=== PATIENT | female | born 1945 | race African-American/Black ===

== ENCOUNTER → 2016-06-09 | Outpatient (CLI) | payer MEDICARE ==
[2016-06-09 13:57] LABS: ABSOLUTE EOSINOPHILS # (AUTO) 0.3 10^3/uL (0.0-0.6); ABSOLUTE MONOCYTES (AUTO) 0.8 10^3/uL (0.1-1.4); ABSOLUTE NEUT (AUTO) 4.4 10^3/uL (1.7-8.2); BASOPHILS % (AUTO) 0.2 % (0-2); EOSINOPHILS % (AUTO) 4.5 % (0-6); HEMATOCRIT 46.7 % (36.0-47.0); HGB HCT DIFFERENCE -1.7; LYMPHOCYTES % (AUTO) 26.4 % (13-45); MEAN CORPUSCULAR HEMOGLOBIN 30.7 pg (27.0-33.4); MEAN CORPUSCULAR VOLUME 96 fl (80-97); MONOCYTES % (AUTO) 10.2 % (3-13); RED BLOOD COUNT 4.87 10^6/uL (3.72-5.28); RED CELL DISTRIBUTION WIDTH 13.6 % (11.5-14.0); SEGMENTED NEUTROPHILS % (AUTO) 58.7 % (42-78); WHITE BLOOD COUNT 7.5 10^3/uL (4.0-10.5)
[2016-06-09 14:03] LABS: ALANINE AMINOTRANSFERASE 29 U/L (9-52); ALKALINE PHOSPHATASE 60 U/L (38-126); ANION GAP 9 (5-19); ASPARTATE AMINO TRANSFERASE 20 U/L (14-36); BILIRUBIN,TOTAL 0.6 mg/dL (0.2-1.3); BLOOD UREA NITROGEN 15 mg/dL (7-20); CALCIUM 9.5 mg/dL (8.4-10.2); CARBON DIOXIDE 36 mmol/L (22-30); CHLORIDE 96 mmol/L (98-107); CREATININE RESULT 0.83 mg/dL (0.52-1.25); GLUCOSE 83 mg/dL (75-110); POTASSIUM 4.1 mmol/L (3.6-5.0); SODIUM 141.3 mmol/L (137-145); TOTAL PROTEIN 6.4 g/dL (6.3-8.2)
[2016-06-09 14:04] LABS: C-REACTIVE PROTEIN < 5.0 mg/L (<10.0)
[2016-06-09 14:49] LABS: ERYTHROCYTE SEDIMENTATION RATE 6 mm/hr (0-30)
[2016-06-10 13:58] LABS: APPEARANCE,URINE SLIGHTLY-CLOUDY; BILIRUBIN,URINE NEGATIVE (NEGATIVE); CALCIUM OXALATE CRYSTALS,URINE FEW /HPF; GLUCOSE, URINE NEGATIVE (NEGATIVE); KETONES,URINE NEGATIVE (NEGATIVE); LEUKOCYTE ESTERASE,URINE NEGATIVE (NEGATIVE); NITRITE,URINE NEGATIVE (NEGATIVE); PROTEIN,URINE NEGATIVE (NEGATIVE); URINE SPECIFIC GRAVITY 1.026; UROBILINOGEN,URINE NEGATIVE mg/dL (<2.0)
== END ==
LOC: OD 12:57
PROVIDERS: ATTEND Specialist
DX: K58.8 Other irritable bowel syndrome (principal); R10.9 Unspecified abdominal pain; D50.9 Iron deficiency anemia, unspecified
CPT/HCPCS: 36415; 80053; 81001; 85025; 85652; 86140; 86256; 87086

== ENCOUNTER → 2016-08-17 | Outpatient (CLI) | payer MEDICARE ==
[2016-08-17 17:05] LABS: ABSOLUTE EOSINOPHILS # (AUTO) 0.2 10^3/uL (0.0-0.6); ABSOLUTE LYMPHOCYTES (AUTO) 0.9 10^3/uL (0.5-4.7); ABSOLUTE MONOCYTES (AUTO) 0.5 10^3/uL (0.1-1.4); ABSOLUTE NEUT (AUTO) 5.5 10^3/uL (1.7-8.2); BASOPHILS % (AUTO) 0.4 % (0-2); EOSINOPHILS % (AUTO) 2.4 % (0-6); HEMATOCRIT 42.8 % (36.0-47.0); HEMOGLOBIN 14.5 g/dL (12.0-15.5); HGB HCT DIFFERENCE 0.7; LYMPHOCYTES % (AUTO) 12.9 % (13-45); MEAN CORPUSCULAR HEMOGLOBIN 31.9 pg (27.0-33.4); MEAN CORPUSCULAR VOLUME 94 fl (80-97); MONOCYTES % (AUTO) 6.9 % (3-13); RED BLOOD COUNT 4.56 10^6/uL (3.72-5.28); RED CELL DISTRIBUTION WIDTH 14.1 % (11.5-14.0); SEGMENTED NEUTROPHILS % (AUTO) 77.4 % (42-78); WHITE BLOOD COUNT 7.1 10^3/uL (4.0-10.5)
[2016-08-17 17:40] LABS: ERYTHROCYTE SEDIMENTATION RATE 8 mm/hr (0-30)
== END ==
LOC: OD 15:54
PROVIDERS: ATTEND Specialist
DX: K58.9 Irritable bowel syndrome, unspecified (principal); R10.9 Unspecified abdominal pain
CPT/HCPCS: 36415; 85025; 85652; 86140; 86256

== ENCOUNTER → 2016-11-17 | Outpatient (CLI) | payer MEDICARE ==
--- NOTE | 2016-11-17 17:13 | RADIOLOGY REPORT (SQ) ---
EXAM DESCRIPTION: VENOUS UNILATERAL LOWER COMPLETED DATE/TIME: 11/17/2016 4:52 pm REASON FOR STUDY: M79.605 M79.605 PAIN IN LEFT LEG COMPARISON: None. TECHNIQUE: Dynamic and static powell scale and color images acquired of the left leg venous system. Se lected spectral images acquired with additional compression and augmentation maneuvers. The contralat eral common femoral vein and saphenofemoral junction were also imaged. Images stored on PACS. LIMITATIONS: None. FINDINGS: LEFT COMMON FEMORAL: Normal phasicity, compression and augmentation. No visualized echogenic material on g ray scale. No defects on color images. FEMORAL: Normal compression and augmentation. No visualized echogenic material on powell scale. No defe cts on color images. POPLITEAL: Normal compression, augmentation. No visualized echogenic material on powell scale. No defec ts on color images. CALF VESSELS: Normal compression, augmentation. No visualized echogenic material on powell scale. No de fects on color images. GSV and SSV: Normal compression, augmentation. No visualized echogenic material on powell scale. No def ects on color images. ANY DEEP VENOUS INSUFFICIENCY: Not evaluated. ANY EVIDENCE OF POPLITEAL CYST: No. OTHER: No other significant finding. RIGHT COMMON FEMORAL VEIN AND SAPHENOFEMORAL JUNCTION: Normal phasicity, compression and augmentation. No visualized echogenic material on powell scale. No de fects on color images. IMPRESSION: NO EVIDENCE OF DVT OR SVT IN THE LEFT LEG. TECHNICAL DOCUMENTATION: JOB ID: [id number] [employer]- All Rights Reserved
== END ==
LOC: SP 16:14
PROVIDERS: ATTEND Physician Assistant
DX: M79.605 Pain in left leg (principal)
CPT/HCPCS: 93971

== ENCOUNTER → 2016-11-30 | Outpatient (CLI) | payer MEDICARE ==
--- NOTE | 2016-11-30 17:20 | WOMENS IMAGING REPORT ---
EXAM DESCRIPTION: BILAT DIAGNOSTIC MAMMO W/CAD; U/S BREAST UNILAT LIMITED COMPLETED DATE/TIME: 11/30/2016 11:38 am; 11/30/2016 2:01 pm REASON FOR STUDY: N64.89 N64.89 OTHER SPECIFIED DISORDERS OF BREAST left breast pain COMPARISON: Mammograms dating back to 2007 TECHNIQUE: Standard craniocaudal and mediolateral oblique views of each breast recorded using digita l acquisition. Left breast 90 mediolateral view. Left breast ultrasound. LIMITATIONS: None. FINDINGS: RIGHT BREAST MASSES: No suspicious masses. CALCIFICATIONS: No new or suspicious calcifications. ARCHITECTURAL DISTORTION: None. DEVELOPING DENSITY: None. ASYMMETRY: None noted. OTHER: No other significant findings. LEFT BREAST MASSES: No suspicious masses. CALCIFICATIONS: No new or suspicious calcifications. ARCHITECTURAL DISTORTION: None. DEVELOPING DENSITY: None. ASYMMETRY: None noted. OTHER: Pacemaker over the left upper outer quadrant Read with the assistance of CAD: .[facility] - R2 Cenova Version 1.3 .[facility] - R2 Cenova Version 1.3 .[facility] - R2 Cenova Version 2.4 .[facility] - R2 Cenova Version 2.4 .[facility] - R2 Esthetician Facialist Version 9.2 Left breast ultrasound: Patient gives a history of left breast pain. Ultrasound of the left breast 12 o'clock position was p erformed in the area of pain 1 1 seconds. No focal findings. No cysts. No masses. No worrisome acoustic absorption. No fluid collections al dante the pacemaker leads. IMPRESSION: No mammographic evidence for malignancy right breast. No mammographic or sonographic evidence for malignancy left breast. BREAST DENSITY: d. The breasts are extremely dense, which lowers the sensitivity of mammography. BIRAD: 1 Negative. RECOMMENDATION: RECOMMENDED FOLLOW UP: Clinical followup for breast pain. Otherwise, please continu e yearly bilateral tomosynthesis in November 2017 given extremely dense fibroglandular tissue SPECIFIC INTERVENTION/IMAGING/CONSULTATION RECOMMENDED:No additional intervention/ imaging/consultati on needed at this time. COMMUNICATION:The negative/benign results were communicated to the patient. COMMENT: The patient has been notified of the results by letter per MQSA requirements. Additional no tification policies are in place for contacting patient with suspicious or incomplete findings. Quality ID #[id number]: The [employer] recommends an annual screening mammogram for women aged 40 years or over. This facility utilizes a reminder system to ensure that all patients receive reminder letters, and/or direct phone calls for appointments. This includes reminders for routine scr eening mammograms, diagnostic mammograms, or other Breast Imaging Interventions when appropriate. Th is patient will be placed in the appropriate reminder system. The [employer] (ACR) has developed recommendations for screening MRI of the breast s in certain patient populations, to be used in conjunction with mammography. Breast MRI surveillanc e may be appropriate for women with more than 20% lifetime risk of developing breast cancer as deter mined by genetic testing, significant family history of the disease, or history of mantle radiation f or Hodgkins Disease. ACR Practice Guidelines 2008. TECHNICAL DOCUMENTATION: FINDING NUMBER: (1) ASSESSMENT: (1) JOB ID: [id number] [employer]- All Rights Reserved
--- NOTE | 2016-11-30 17:20 | WOMENS IMAGING REPORT ---
EXAM DESCRIPTION: BILAT DIAGNOSTIC MAMMO W/CAD; U/S BREAST UNILAT LIMITED COMPLETED DATE/TIME: 11/30/2016 11:38 am; 11/30/2016 2:01 pm REASON FOR STUDY: N64.89 N64.89 OTHER SPECIFIED DISORDERS OF BREAST left breast pain COMPARISON: Mammograms dating back to 2007 TECHNIQUE: Standard craniocaudal and mediolateral oblique views of each breast recorded using digita l acquisition. Left breast 90 mediolateral view. Left breast ultrasound. LIMITATIONS: None. FINDINGS: RIGHT BREAST MASSES: No suspicious masses. CALCIFICATIONS: No new or suspicious calcifications. ARCHITECTURAL DISTORTION: None. DEVELOPING DENSITY: None. ASYMMETRY: None noted. OTHER: No other significant findings. LEFT BREAST MASSES: No suspicious masses. CALCIFICATIONS: No new or suspicious calcifications. ARCHITECTURAL DISTORTION: None. DEVELOPING DENSITY: None. ASYMMETRY: None noted. OTHER: Pacemaker over the left upper outer quadrant Read with the assistance of CAD: .[facility] - R2 Cenova Version 1.3 .[facility] Imaging - R2 Cenova Version 1.3 .[facility] - R2 Cenova Version 2.4 .[facility] - R2 Cenova Version 2.4 .[facility] - R2 Technical Marketing Consultant Version 9.2 Left breast ultrasound: Patient gives a history of left breast pain. Ultrasound of the left breast 12 o'clock position was p erformed in the area of pain 1 1 seconds. No focal findings. No cysts. No masses. No worrisome acoustic absorption. No fluid collections al dante the pacemaker leads. IMPRESSION: No mammographic evidence for malignancy right breast. No mammographic or sonographic evidence for malignancy left breast. BREAST DENSITY: d. The breasts are extremely dense, which lowers the sensitivity of mammography. BIRAD: 1 Negative. RECOMMENDATION: RECOMMENDED FOLLOW UP: Clinical followup for breast pain. Otherwise, please continu e yearly bilateral tomosynthesis in November 2017 given extremely dense fibroglandular tissue SPECIFIC INTERVENTION/IMAGING/CONSULTATION RECOMMENDED:No additional intervention/ imaging/consultati on needed at this time. COMMUNICATION:The negative/benign results were communicated to the patient. COMMENT: The patient has been notified of the results by letter per MQSA requirements. Additional no tification policies are in place for contacting patient with suspicious or incomplete findings. Quality ID #225: The [employer] recommends an annual screening mammogram for women aged 40 years or over. This facility utilizes a reminder system to ensure that all patients receive reminder letters, and/or direct phone calls for appointments. This includes reminders for routine scr eening mammograms, diagnostic mammograms, or other Breast Imaging Interventions when appropriate. Th is patient will be placed in the appropriate reminder system. The [employer] (ACR) has developed recommendations for screening MRI of the breast s in certain patient populations, to be used in conjunction with mammography. Breast MRI surveillanc e may be appropriate for women with more than 20% lifetime risk of developing breast cancer as deter mined by genetic testing, significant family history of the disease, or history of mantle radiation f or Hodgkins Disease. ACR Practice Guidelines 2008. TECHNICAL DOCUMENTATION: FINDING NUMBER: (1) ASSESSMENT: (1) JOB ID: [id number] [employer]- All Rights Reserved
== END ==
LOC: WI 11:03
PROVIDERS: ATTEND Internal Medicine
DX: N64.4 Mastodynia (principal)
CPT/HCPCS: 76642; G0204; 77066

== ENCOUNTER → 2016-12-22 | Outpatient (CLI) | payer MEDICARE ==
[2016-12-22 14:48] LABS: ABSOLUTE EOSINOPHILS # (AUTO) 0.2 10^3/uL (0.0-0.6); ABSOLUTE LYMPHOCYTES (AUTO) 1.1 10^3/uL (0.5-4.7); ABSOLUTE MONOCYTES (AUTO) 0.7 10^3/uL (0.1-1.4); ABSOLUTE NEUT (AUTO) 4.1 10^3/uL (1.7-8.2); BASOPHILS % (AUTO) 0.3 % (0-2); EOSINOPHILS % (AUTO) 3.3 % (0-6); HEMATOCRIT 41.6 % (36.0-47.0); HEMOGLOBIN 14.1 g/dL (12.0-15.5); HGB HCT DIFFERENCE 0.7; LYMPHOCYTES % (AUTO) 17.4 % (13-45); MEAN CORPUSCULAR HEMOGLOBIN 32.3 pg (27.0-33.4); MEAN CORPUSCULAR HGB CONC 33.9 g/dL (32.0-36.0); MEAN CORPUSCULAR VOLUME 95 fl (80-97); MONOCYTES % (AUTO) 11.2 % (3-13); RED BLOOD COUNT 4.36 10^6/uL (3.72-5.28); RED CELL DISTRIBUTION WIDTH 13.7 % (11.5-14.0); SEGMENTED NEUTROPHILS % (AUTO) 67.8 % (42-78)
[2016-12-22 15:26] LABS: ERYTHROCYTE SEDIMENTATION RATE 16 mm/hr (0-30)
== END ==
LOC: OD 13:54
PROVIDERS: ATTEND Specialist
DX: K51.80 Other ulcerative colitis without complications (principal); R10.9 Unspecified abdominal pain
CPT/HCPCS: 36415; 85025; 85652

== ENCOUNTER → 2017-12-27 | Outpatient (CLI) | payer MEDICARE ==
--- NOTE | 2017-12-28 08:01 | WOMENS IMAGING REPORT ---
EXAM DESCRIPTION: 3D SCREENING MAMMO BILAT COMPLETED DATE/TIME: 12/27/2017 9:35 am REASON FOR STUDY: SCREENING MAMMO Z12.31 ENCNTR SCREEN MAMMOGRAM FOR MALIGNANT NEOPLASM OF DIVINA COMPARISON: Multiple since 2007 TECHNIQUE: Standard craniocaudal and mediolateral oblique views of each breast recorded using digita l acquisition and breast tomosynthesis. LIMITATIONS: None. FINDINGS: No masses, calcifications or architectural distortion. No areas of suspicion. Read with the assistance of CAD. .[facility] - R2 Cenova Version 1.3 .[facility] Imaging - R2 Cenova Version 1.3 .[facility] - R2 Cenova Version 2.4 .[facility] - R2 Cenova Version 2.4 .[facility] - R2 Lumber Stacker Version 9.2 IMPRESSION: NORMAL MAMMOGRAM. BIRADS 1. BREAST DENSITY: d. The breasts are extremely dense, which lowers the sensitivity of mammography. BIRAD: 1 NEGATIVE RECOMMENDATION: ROUTINE SCREENING Please continue bilateral screening tomosynthesis in December 2018 COMMENT: The patient has been notified of the results by letter per SA requirements. Additional no tification policies are in place for contacting patient with suspicious or incomplete findings. Quality ID #[id number]: The [employer] recommends an annual screening mammogram for women aged 40 years or over. This facility utilizes a reminder system to ensure that all patients receive reminder letters, and/or direct phone calls for appointments. This includes reminders for routine scr eening mammograms, diagnostic mammograms, or other Breast Imaging Interventions when appropriate. Th is patient will be placed in the appropriate reminder system. The [employer] (ACR) has developed recommendations for screening MRI of the breast s in certain patient populations, to be used in conjunction with mammography. Breast MRI surveillanc e may be appropriate for women with more than 20% lifetime risk of developing breast cancer as deter mined by genetic testing, significant family history of the disease, or history of mantle radiation f or Hodgkins Disease. ACR Practice Guidelines 2008. DBT Technology DBT is a type of tomographic mammography. With conventional mammography, overlapping breast tissue ma y make lesions difficult to detect, even with good compression. DBT uses an x-ray tube that rotates a round the breast, taking images at different angles. These images are then combined to create thin sl ices of the breast that the radiologist can view as a 3D reconstruction. The [employer] unit can perform full-field digital mammograms (2D imaging); or DBT (3D imaging); or both, in a combination mode that quickly performs both the mammogram and the tomosynthesis scan while the breast is still compressed. PQRS 6045F: Fluoroscopic imaging is not utilized for breast tomosynthesis. TECHNICAL DOCUMENTATION: FINDING NUMBER: (1) ASSESSMENT: (1) JOB ID: [id number] [employer]- All Rights Reserved Reading location - IP/workstation name: [facility]
== END ==
LOC: WI 09:04
PROVIDERS: ATTEND Internal Medicine
DX: Z12.31 Encounter for screening mammogram for malignant neoplasm of breast (principal); M81.0 Age-related osteoporosis without current pathological fracture
CPT/HCPCS: 77063; 77067

== ENCOUNTER → 2018-01-17 | Outpatient (CLI) | payer MEDICARE ==
--- NOTE | 2018-01-17 13:30 | RADIOLOGY REPORT (SQ) ---
EXAM DESCRIPTION: SACROILIAC JOINTS 3 OR MORE COMPLETED DATE/TIME: 01/17/2018 1:15 pm REASON FOR STUDY: M54.5 LOW BACK PAIN M25.551 PAIN IN RIGHT HIP I43 CARDIOMYOPATHY IN DISEASES CLAS SIFIED ELSEWHERE M54.5 LOW BACK PAIN M25.551 PAIN IN RIGHT HIP COMPARISON: Lumbar spine plain films 01/17/2018 CT abdomen pelvis 05/05/2016 NUMBER OF VIEWS: Three views. TECHNIQUE: AP and oblique views of the sacroiliac joints. LIMITATIONS: None. FINDINGS: MINERALIZATION: Normal. BONES: No acute fracture or dislocation. No worrisome bone lesions. Mild osteophyte formation inferio r aspect right SI joint JOINTS: The sacroiliac joints are patent. Minimal vacuum phenomenon bilaterally. No widening or fus ion. SOFT TISSUES: Atherosclerotic arterial vascular calcifications. OTHER: Bilateral hip joint space narrowing and bony spurring IMPRESSION: Mild arthritis both SI joints with vacuum phenomenon and very mild right SI joint bony s purring inferiorly TECHNICAL DOCUMENTATION: JOB ID: [id number] [employer]- All Rights Reserved Reading location - IP/workstation name: [email or web address]
--- NOTE | 2018-01-17 13:32 | RADIOLOGY REPORT (SQ) ---
EXAM DESCRIPTION: HIP RIGHT AP/LATERAL COMPLETED DATE/TIME: 01/17/2018 1:15 pm REASON FOR STUDY: M54.5 LOW BACK PAIN M25.551 PAIN IN RIGHT HIP I43 CARDIOMYOPATHY IN DISEASES CLAS SIFIED ELSEWHERE M54.5 LOW BACK PAIN M25.551 PAIN IN RIGHT HIP COMPARISON: SI joints, lumbar spine films same date NUMBER OF VIEWS: Two views. TECHNIQUE: AP pelvis and additional frog-leg view of the right hip. LIMITATIONS: None. FINDINGS: MINERALIZATION: Normal. RIGHT HIP: No fracture or dislocation. No worrisome bone lesions. Mild joint space narrowing and krystyna ny spurring. LEFT HIP: No fracture or dislocation. No worrisome bone lesions. Mild joint space narrowing and bon y spurring PUBIS AND ISCHIUM: No fracture. PELVIS: No fracture. SACRUM: No fracture or dislocation. No worrisome bone lesions. LOWER LUMBAR SPINE: L4-5 and L5-S1 facet arthropathy. SOFT TISSUES: No findings. OTHER: Bilateral SI joint vacuum phenomenon with very mild bony spurring along the inferior right SI joint IMPRESSION: No acute fracture or malalignment. 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
--- NOTE | 2018-01-17 13:35 | RADIOLOGY REPORT (SQ) ---
EXAM DESCRIPTION: L SPINE WHOLE COMPLETED DATE/TIME: 01/17/2018 1:15 pm REASON FOR STUDY: M54.5 LOW BACK PAIN M25.551 PAIN IN RIGHT HIP I43 CARDIOMYOPATHY IN DISEASES CLA SSIFIED ELSEWHERE M54.5 LOW BACK PAIN M25.551 PAIN IN RIGHT HIP COMPARISON: Bilateral hip films, bilateral SI joint films NUMBER OF VIEWS: Five views including obliques. TECHNIQUE: AP, lateral, oblique, and sacral radiographic images acquired of the lumbar spine. LIMITATIONS: None. FINDINGS: MINERALIZATION: Osteopenic SEGMENTATION: Normal. No transitional anatomy. ALIGNMENT: Mild grade 1 anterolisthesis of L4 over L5. VERTEBRAE: Maintained height. No fracture or worrisome bone lesion. DISCS: Disc space loss of height at T12-L1 and L4-5 POSTERIOR ELEMENTS: No spondylolysis. Diffuse lumbar facet arthropathy most pronounced at L4-5 and L 5-S1 HARDWARE: None in the spine. PARASPINAL SOFT TISSUES: Normal. PELVIS: Mild bilateral SI joint vacuum phenomenon with very mild bony spurring right SI joint OTHER: No other significant finding. IMPRESSION: Degenerative grade 1 anterolisthesis of L4 over L5. Lower lumbar facet arthropathy No acute fracture TECHNICAL DOCUMENTATION: JOB ID: [id number] [employer]- All Rights Reserved Reading location - IP/workstation name: [email or web address]
--- NOTE | 2018-01-21 08:58 | XCELERA REPORT ---
[address] [address] Transthoracic Echocardiogram Report Name: MARI DOWNEY Age: 72 yrs Gender: Female : 1945 Patient Status: Outpatient Patient Location: Study Date: 01/17/2018 11:35 AM Height: 63 in Weight: 150 lb BSA: 1.7 m2 Procedure: A two-dimensional transthoracic echocardiogram with color flow Doppler was performed. The study was technically difficult with many images being suboptimal in quality. Reason For Study: Cardiomuopathy History: Cardiomuopathy. Ordering Physician: JENNYFER BERNAL Performed By: Arleen Melissa Interpretation Summary Cardiomuopathy The left ventricle is mildly dilated. There is normal left ventricular wall thickness. Left ventricular systolic function is mildly reduced. LV EF is 45% to 50% Doppler measurements suggest impaired left ventricular relaxation, which is associated with grade I/IV or mild diastolic dysfunction There is mild global hypokinesis of the left ventricle. There is no thrombus. There is no ventricular septal defect visualized. The right ventricle is normal in size and function. The right atrium is normal. The left atrial size is normal. The interatrial septum is intact with no evidence for an atrial septal defect. There is no evidence of mitral valve prolapse. There is no vegetation seen on the mitral valve. There is no mitral valve stenosis. Mild eccentric posteriorly directed MR jet. There is no aortic valvular vegetation. There is no aortic valve stenosis There is no LVOT obstruction. No aortic regurgitation is present. There is no tricuspid stenosis. There is a trace to mild amount of tricuspid regurgitation Right ventricular systolic pressure is normal. RVSP is 22 to 27 mm of Hg , with RA mean of 5 to 10. There is no pulmonic valvular stenosis. There is no pulmonic valvular regurgitation. There is no pericardial effusion. MMode/2D Measurements & Calculations RVDd: 2.4 cm LVIDd: 5.0 cm FS: 20.3 % Ao root diam: 2.5 cm IVSd: 1.0 cm LVIDs: 4.0 cm EDV(Teich): 120.8 ml Ao root area: 5.0 cm2 LVPWd: 0.98 cm ESV(Teich): 70.8 ml LA dimension: 3.8 cm EF(Teich): 41.4 % Doppler Measurements & Calculations MV E max shaila: MV P1/2t max shaila: Ao V2 max: LV V1 max P.7 cm/sec 79.1 cm/sec 102.5 cm/sec 2.5 mmHg MV A max shaila: MV P1/2t: 67.5 msec Ao max P.2 mmHg LV V1 max: 81.9 cm/sec MVA(P1/2t): 3.3 cm2 79.5 cm/sec MV E/A: 0.78 MV dec slope: 343.1 cm/sec2 MV dec time: 0.27 sec PA V2 max: TR max shaila: MV P1/2t-pr_phl: 63.9 cm/sec 208.0 cm/sec 67.5 msec PA max PG: TR max P.3 mmHg 1.6 mmHg Left Ventricle The left ventricle is mildly dilated. There is normal left ventricular wall thickness. LV EF is 45% to 50%. Left ventricular systolic function is mildly reduced. Doppler measurements suggest impaired left ventricular relaxation, which is associated with grade I/IV or mild diastolic dysfunction. There is mild global hypokinesis of the left ventricle. There is no thrombus. There is no ventricular septal defect visualized. Right Ventricle The right ventricle is normal in size and function. Atria The right atrium is normal. The left atrial size is normal. The interatrial septum is intact with no evidence for an atrial septal defect. Mitral Valve There is no evidence of mitral valve prolapse. There is no vegetation seen on the mitral valve. There is no mitral valve stenosis. Mild eccentric posteriorly directed MR jet. Aortic Valve There is no aortic valvular vegetation. There is no aortic valve stenosis. There is no LVOT obstruction. No aortic regurgitation is present. Tricuspid Valve There is no tricuspid stenosis. There is a trace to mild amount of tricuspid regurgitation. Right ventricular systolic pressure is normal. RVSP is 22 to 27 mm of Hg , with RA mean of 5 to 10. Pulmonic Valve There is no pulmonic valvular stenosis. There is no pulmonic valvular regurgitation. Great Vessels The aortic root is normal size. Effusions There is no pericardial effusion. : JENNYFER BERNAL > Jennyfer Bernal
== END ==
LOC: SP 11:17
PROVIDERS: ATTEND Specialist
DX: M54.5 Low back pain (principal); M25.551 Pain in right hip; I43 Cardiomyopathy in diseases classified elsewhere; M16.0 Bilateral primary osteoarthritis of hip
CPT/HCPCS: 72110; 72202; 93306

== ENCOUNTER → 2019-01-16 | Outpatient (CLI) | payer MEDICARE ==
--- NOTE | 2019-01-16 14:22 | WOMENS IMAGING REPORT ---
EXAM DESCRIPTION: BONE DENSITY HIP/SPINE COMPLETED DATE/TIME: 01/16/2019 2:12 pm REASON FOR STUDY: Z78.0 APPENDICULAR/AXIAL SKELETON Z12.31 ENCNTR SCREEN MAMMOGRAM FOR MALIGNANT NE OPLASM OF DIVINA Z78.0 ASYMPTOMATIC MENOPAUSAL STATE COMPARISON: None. TECHNIQUE: Dual-Energy X-ray Absorptiometry (DEXA) of the AP Spine and Hip. LIMITATIONS: None. FINDINGS: LUMBAR SPINE: The bone mineral density (BMD) measured from L1-L4 in the AP projection correlates with a T-score of 1.3, which is normal as defined by the World Health Organization. HIP: The bone mineral density (BMD) measured in the left hip correlates with a T-score of -0.7, which is n ormal as defined by the World Health Organization. IMPRESSION: 1. LUMBAR SPINE: NORMAL. 2. HIP: NORMAL. COMMENT: The World Health Organization defines low BMD as follows: T-score: Normal: Greater than -1.0 Osteopenia: Between -1.0 and -2.5 Osteoporosis: Less than -2.5 without fractures Established osteoporosis: Less than -2.5 with fractures In general, you may wish to consider: Diagnosis Treatment Follow-up DEXA Normal BMD Prevention 2-3 years Osteopenia Prevention/Therapy 1-2 years Osteoporosis Therapy Yearly TECHNICAL DOCUMENTATION: JOB ID: [id number] [employer]- All Rights Reserved Reading location - IP/workstation name: [email or web address]
--- NOTE | 2019-01-17 14:56 | WOMENS IMAGING REPORT ---
EXAM DESCRIPTION: 3D SCREENING MAMMO BILAT COMPLETED DATE/TIME: 01/16/2019 2:12 pm REASON FOR STUDY: Z12.31 SCREENING MAMMO Z12.31 ENCNTR SCREEN MAMMOGRAM FOR MALIGNANT NEOPLASM OF B RE Z78.0 ASYMPTOMATIC MENOPAUSAL STATE COMPARISON: [id number] EXAM PARAMETERS: Views: Standard craniocaudal and mediolateral oblique views of each breast recorded using digital acquisition and breast tomosynthesis. Read with the assistance of CAD. .[employer] Driver Version 9.2 LIMITATIONS: Left battery pack. FINDINGS: No suspicious masses, suspicious calcifications or architectural distortion. No areas of c oncern. IMPRESSION: NEGATIVE MAMMOGRAM. BIRADS 1. BREAST DENSITY: c. The breasts are heterogeneously dense, which may obscure small masses. BIRAD: ASSESSMENT: 1 NEGATIVE RECOMMENDATION: ROUTINE SCREENING COMMENT: The patient has been notified of the results by letter per MQSA requirements. Additional no tification policies are in place for contacting patient with suspicious or incomplete findings. Quality ID #225: The [place] recommends an annual screening mammogram for women aged 40 years or over. This facility utilizes a reminder system to ensure that all patients receive reminder letters, and/or direct phone calls for appointments. This includes reminders for routine scr eening mammograms, diagnostic mammograms, or other Breast Imaging Interventions when appropriate. Th is patient will be placed in the appropriate reminder system. TECHNICAL DOCUMENTATION: FINDING NUMBER: (1) ASSESSMENT: (1) JOB ID: [id number] [employer]- All Rights Reserved Reading location - IP/workstation name: [email or web address]
== END ==
LOC: WI 13:20
PROVIDERS: ATTEND Physician Assistant
DX: Z12.31 Encounter for screening mammogram for malignant neoplasm of breast (principal); Z78.0 Asymptomatic menopausal state
CPT/HCPCS: 77063; 77067; 77080

== ENCOUNTER → 2019-04-10 | Outpatient (CLI) | payer MEDICARE ==
--- NOTE | 2019-04-10 17:01 | RADIOLOGY REPORT (SQ) ---
EXAM DESCRIPTION: SHOULDER LEFT 2 OR MORE VIEWS COMPLETED DATE/TIME: 04/10/2019 3:07 pm REASON FOR STUDY: M25.512 PAIN IN LEFT SHOULDER M25.512 PAIN IN LEFT SHOULDER COMPARISON: None. NUMBER OF VIEWS: Three views. TECHNIQUE: Internal rotation, external rotation, and Y view images acquired of the left shoulder. LIMITATIONS: None. FINDINGS: MINERALIZATION: Osteopenic BONES: No acute fracture. No worrisome bone lesions. JOINTS: No glenohumeral dislocation. Mild glenohumeral joint space narrowing. Moderate acromioclavi cular joint bony spurring with narrowing of the subacromial space VISUALIZED LUNGS AND RIBS: No pneumothorax. No rib fracture. SOFT TISSUES: Left-sided pacemaker are OTHER: No other significant finding. IMPRESSION: No acute fracture or malalignment. AC joint hypertrophy TECHNICAL DOCUMENTATION: JOB ID: [id number] [employer]- All Rights Reserved Reading location - IP/workstation name: [email or web address]
== END ==
LOC: RAD 14:51
PROVIDERS: ATTEND Specialist
DX: M25.512 Pain in left shoulder (principal)

== ENCOUNTER 2019-08-24 01:54 | Emergency (ER) | payer MEDICARE, OTHER ==
[2019-08-24 02:08] VITALS: BP 145/68
--- NOTE | 2019-08-24 02:35 | ER Document Report ---
HPI - HPI Time Seen by Provider: 08/24/19 02:17 Pain Level: 4 Notes: 73-year-old female patient presenting to the emergency department chief complaint of right toe pain. Patient reports pain to right third and fourth toes after she accidentally kicked a dresser in her home. She ambulated into the emergency department with a steady gait. She states this occurred just prior to arrival. - REPRODUCTIVE Reproductive: DENIES: : Past Medical History - General Information source: Patient - Social History Smoking Status: Current Every Day Smoker Family History: Reviewed & Not Pertinent Patient has suicidal ideation: No Patient has homicidal ideation: No - Past Medical History Cardiac Medical History: Reports: Hx Coronary Artery Disease, Hx Heart Attack, Hx Hypercholesterolemia, Hx Hypertension Pulmonary Medical History: Reports: Hx Asthma, Hx Bronchitis Denies: Hx COPD, Hx Pneumonia Neurological Medical History: Denies: Hx Cerebrovascular Accident, Hx Seizures Musculoskeletal Medical History: Reports Hx Arthritis Past Surgical History: Reports: Hx Cardiac Surgery - cabg, Hx Hysterectomy - Immunizations Hx Diphtheria, Pertussis, Tetanus Vaccination: No Hx Pneumococcal Vaccination: 05/22/08 Vertical Provider Document - CONSTITUTIONAL Notes: PHYSICAL EXAMINATION: GENERAL: Well-appearing, well-nourished and in no acute distress. HEAD: Atraumatic, normocephalic. EYES: Pupils equal round extraocular movements intact, conjunctiva are normal. ENT: Nares patent NECK: Normal range of motion LUNGS: No respiratory distress Musculoskeletal: Normal range of motion, swelling and ecchymosis noted to right third, fourth and fifth toes, cap refill less than 3 seconds. Strong dorsalis pedis pulse. NEUROLOGICAL: Normal speech, normal gait. PSYCH: Normal mood, normal affect. SKIN: Warm, Dry, normal turgor, no rashes or lesions noted. - INFECTION CONTROL TRAVEL OUTSIDE OF THE [place] IN LAST 30 DAYS: No Course - Re-evaluation Re-evalutation: Toe X-Ray 08/24/19 00:00 IMPRESSION: Third and fourth digit fractures. Fractured toes carlie taped and then patient placed in a walking shoe/postop shoe. Patient will follow-up with orthopedics as needed. - Vital Signs Vital signs: Temp Pulse Resp BP Pulse Ox 98.6 F 62 18 145/68 H 94 08/24/19 01:59 08/24/19 01:59 08/24/19 01:59 08/24/19 01:59 08/24/19 01:59 Procedures - Immobilization Right foot Pre-Proc Neuro Vasc Exam: Normal Immobilizer type: Post-op shoe Performed by: PCT Post-Proc Neuro Vasc Exam: Normal Discharge - Discharge Clinical Impression: Fracture of multiple toes Qualifiers: Encounter type: initial encounter Fracture type: closed Laterality: right Qualified Code(s): S92.911A - Unspecified fracture of right toe(s), initial encounter for closed fracture Condition: Stable Disposition: HOME, SELF-CARE Additional Instructions: Fractured Toe You have fractured your toes. Although this fracture doesn't need a cast or splint, emergency evaluation was needed to assess the straightness of the bones and joints. Reduction ("setting") is necessary for toe fractures which are crooked or twisted. A toe fracture will heal in about three weeks. Usually, the fractured toe is taped to the next toe. The second toe acts as a moving splint to protect the broken one. Ice and elevation help during the first 48 hours. You may need crutches at first if walking is painful. When you begin walking, be careful NOT to do things that hurt. If weight bearing is not comfortable within a few days, you may require a special shoe, walking boot, or cast. Call the doctor or return at once if severe swelling, severe pain, or numbness develop in the toe, or if you suspect you may have re-injured it. You have fractured your toes. Please take ibuprofen 600 mg every 6 hours to help with pain and inflammation. Use your prescription pain medication as prescribed to help with severe pain. Apply ice to the area and elevate as much as possible over the next several days. Follow-up with orthopedics. Referrals: REBEKA VANEGAS JR, DO [ACTIVE PROVISIONAL STAFF] - Follow up as needed
--- NOTE | 2019-08-24 02:40 | RADIOLOGY REPORT (SQ) ---
CLINICAL HISTORY: bone pain COMPARISON: None. TECHNIQUE: XR TOES 2 OR MORE VIEWS 08/24/2019 12:00 AM CDT FINDINGS: There are oblique fractures of the mid shafts of the proximal third and fourth phalanges. Joint spaces are preserved. Soft tissues are unremarkable. IMPRESSION: Third and fourth digit fractures.
== END 2019-08-24 03:27 | disposition home or self-care (01) ==
LOC: ER 01:54
DX: S92.911A Unspecified fracture of right toe(s), initial encounter for closed fracture (principal); M79.674 Pain in right toe(s); W22.03XA Walked into furniture, initial encounter; F17.200 Nicotine dependence, unspecified, uncomplicated; I25.10 Atherosclerotic heart disease of native coronary artery without angina pectoris; I25.2 Old myocardial infarction; I10 Essential (primary) hypertension; J45.909 Unspecified asthma, uncomplicated
CPT/HCPCS: 99283

== ENCOUNTER 2019-09-30 08:30 | Day surgery (SDC) | payer MEDICARE, OTHER ==
[~2019-09-30 08:30] MED LIST: PROPOFOL INJ 200 MG/20 ML VIAL IV ONE
[2019-09-30] MEDS ORDERED: ALBUTEROL SULFATE 0.083% NEB 2.5 MG/3 ML AMPUL NEB ONE (09:15)
[2019-09-30] MEDS ORDERED: MIDAZOLAM 2 MG/2 ML INJ ONE (09:30)
[2019-09-30] MEDS ORDERED: MEPERIDINE HCL/PF INJ 25 MG/1 ML DISP.SYRIN IV PRN (11:05)
[2019-09-30] MEDS ORDERED: PROMETHAZINE HCL INJ 25 MG/1 ML VIAL IV PRN (11:05)
[2019-09-30] MEDS ORDERED: DIPHENHYDRAMINE HCL 50 MG/ML VIAL IV PRN (11:05)
[2019-09-30] MEDS ORDERED: FENTANYL CITRATE INJ/PF 100 MCG/2 ML AMPUL IV PRN ×3 (11:05)
--- NOTE | 2019-09-30 11:14 | Operative Report ---
Operative Report DATE OF SURGERY: 09/30/19 Operative Report: The risk, benefits and alternatives of the procedure including the risk of bleeding, perforation requiring surgery have been explained to the patient in detail and informed consent has been obtained. The patient is taken to the operating room and placed in a left, lateral decubital position. Timeout was called. Propofol medication is administered. A rectal examination is done which did not reveal any masses, tears or fissures. An Olympus videoscope was introduced into the patient's rectum. Scope was then carefully advanced all the way to the cecum. Cecum was identified by the usual anatomical landmarks including the ileocecal valve as well as the appendiceal office. Photodocumentation is obtained. Scope was then sequentially pulled back via the various segments of the colon including the ascending colon, hepatic flexure, transverse colon, splenic flexure, descending colon and finally into the rectosigmoid portions of the colon. Retroflexion maneuver is performed. PREOPERATIVE DIAGNOSIS: Change in bowel habits, blood in stool, diarrhea question ulcerative colitis flare. POSTOPERATIVE DIAGNOSIS: Right colon inflammation status post biopsy. Diverticulosis without any evidence of diverticulitis. Internal hemorrhoids OPERATION: Colonoscopy with biopsy SURGEON: SABINA DUTTON ANESTHESIA: LMAC TISSUE REMOVED OR ALTERED: As noted above. COMPLICATIONS: None. ESTIMATED BLOOD LOSS: None. INTRAOPERATIVE FINDINGS: As noted above. PROCEDURE: Patient tolerated the procedure well. No immediate postprocedure complications are noted. Patient is discharged in good condition. Discharge date 09/30/2019. Discharge diet: Regular. Discharge activity: Regular. 2 to 3-week follow-up to discuss findings. Patient is instructed to call the office or proceed to the emergency room should there be any further problems or questions. Wait on the pathology.
[2019-09-30 13:29] VITALS: BP 144/68
== END 2019-09-30 11:45 | disposition home or self-care (01) ==
LOC: OROUT 08:30
PROVIDERS: ATTEND Internal Medicine Gastroenterology
DX: K52.9 Noninfective gastroenteritis and colitis, unspecified (principal); K57.30 Diverticulosis of large intestine without perforation or abscess without bleeding; K64.8 Other hemorrhoids; I10 Essential (primary) hypertension; I25.2 Old myocardial infarction; J45.909 Unspecified asthma, uncomplicated; Z95.810 Presence of automatic (implantable) cardiac defibrillator
CPT/HCPCS: 45380; 88305 ×2; 00811; J2250; J2704; A9270; 811